=== PATIENT | female | born 1995 | race Caucasian/White ===

== ENCOUNTER 2017-05-05 08:02 | Emergency (ER) | payer OTHER | END 2017-05-05 10:07 | disposition home or self-care (01) | LOC: FER 08:02 | DX: S50.02XA Contusion of left elbow, initial encounter (principal); W22.8XXA Striking against or struck by other objects, initial encounter; Y92.69 Other specified industrial and construction area as the place of occurrence of the external cause; Y99.0 Civilian activity done for income or pay | CPT/HCPCS: 73080; 73090; 99283 ==